=== PATIENT | male | born 1985 | race Two or more races ===

== ENCOUNTER 2016-12-12 09:41 | Emergency (ER) | payer MEDICAID ==
[~2016-12-12] VITALS: Ht 182.9 cm; Wt 106.6 kg
[~2016-12-12 09:41] MED LIST: CLON1TAB; LORA-205; TEMAZEPAM
[2016-12-12] MEDS ORDERED: SILVER SULFADIAZINE 1 % TOPICAL CREAM 50GM TOP ONE (11:00)
[2016-12-12 11:28] VITALS: BP 119/69
== END 2016-12-12 12:52 | disposition home or self-care (01) ==
LOC: ER 09:41 → EDBD 09:41 → ER 12:52
DX: T25.212A Burn of second degree of left ankle, initial encounter (principal); T24.112A Burn of first degree of left thigh, initial encounter; T22.112A Burn of first degree of left forearm, initial encounter; T31.0 Burns involving less than 10% of body surface; F17.210 Nicotine dependence, cigarettes, uncomplicated; X10.1XXA Contact with hot food, initial encounter; Y93.89 Activity, other specified; Y92.89 Other specified places as the place of occurrence of the external cause; Y99.8 Other external cause status
CPT/HCPCS: 16000

== ENCOUNTER 2018-10-06 08:19 | Inpatient (IN) | payer MEDICAID | END 2018-10-10 11:55 | disposition home or self-care (01) | LOC: ER 08:19 → TELE 12:24 → TELE-CENTR 17:30 | DX: A41.9 Sepsis, unspecified organism (principal); F15.10 Other stimulant abuse, uncomplicated; I88.0 Nonspecific mesenteric lymphadenitis; R07.89 Other chest pain; K80.20 Calculus of gallbladder without cholecystitis without obstruction ==

== ENCOUNTER 2021-01-09 11:45 | Emergency (ER) | payer MEDICAID, OTHER ==
[~2021-01-09] VITALS: Ht 180.3 cm; Wt 104.3 kg
[2021-01-09 12:42] VITALS: BP 140/84
== END 2021-01-09 14:18 | disposition home or self-care (01) ==
LOC: ER 11:45
DX: R21 Rash and other nonspecific skin eruption (principal); F17.210 Nicotine dependence, cigarettes, uncomplicated

== ENCOUNTER 2021-01-12 19:54 | Emergency (ER) | payer OTHER ==
[~2021-01-12] VITALS: Ht 180.3 cm; Wt 104.3 kg
[2021-01-12 19:55] VITALS: BP 118/72
[2021-01-12 21:05] LABS: Basophils # (auto) 0.1 10 ^3/uL (0-0.2); Basophils % (auto) 1.2 % (0.0-2.0); Eosinophils # (auto) 0.1 10 ^3/uL (0-0.8); Eosinophils % (auto) 1.8 % (0.0-7.0); Hematocrit 45.9 % (41.0-53.0); Hemoglobin 15.7 g/dL (13.5-17.5); Lymphocytes # (auto) 3.4 10 ^3/uL (0.4-5.4); Lymphocytes % (auto) 42.4 % (10.0-50.0); Mean Corpuscular Hemoglobin 30.9 pg (28.0-32.0); Mean Corpuscular Hgb Conc. 34.1 g/dL (32.0-36.0); Mean Corpuscular Volume 90.6 fL (80.0-100.0); Monocytes # (auto) 0.7 10 ^3/uL (0-1.3); Monocytes % (auto) 8.5 % (0.0-12.0); Neutrophils # (auto) 3.7 10 ^3/uL (1.6-8.6); Neutrophils % (auto) 46.1 % (37.0-80.0); Nucleated Red Blood Cells % 0.1 %; Red Blood Cells 5.06 10^6/uL (4.5-5.90); Red Cell Distribution Width 12.3 % (11.8-14.3)
[2021-01-12 21:28] LABS: Chloride 112 mmol/L (98-107); Potassium 3.5 mmol/L (3.5-5.1); Sodium 144 mmol/L (136-145)
[2021-01-12 21:32] LABS: Albumin 4.1 g/dL (3.4-5.0); Anion Gap 9 (5-15); BUN/Creatinine Ratio 13.2; Blood Urea Nitrogen 15 mg/dL (7-18); Calcium 8.5 mg/dL (8.5-10.1); Carbon Dioxide 23 mmol/L (21-32); GFR African American 93 mL/min; GFR Non-African American 77 mL/min; Glucose 103 mg/dL (74-106)
[2021-01-12 21:35] LABS: Alanine Aminotransferase 32 U/L (16-61); Alkaline Phosphatase 97 U/L (45-117); Aspartate Aminotransferase 20 U/L (15-37); Bilirubin, Total 0.3 mg/dL (0.2-1.0)
== END 2021-01-13 01:00 | disposition left against medical advice (07) ==
LOC: ER 19:54
DX: K92.1 Melena (principal); K62.89 Other specified diseases of anus and rectum; F11.10 Opioid abuse, uncomplicated; F12.10 Cannabis abuse, uncomplicated; F15.10 Other stimulant abuse, uncomplicated; F17.210 Nicotine dependence, cigarettes, uncomplicated; Z59.0 Homelessness
CPT/HCPCS: 36415; 74176; 80053; 85025

== ENCOUNTER 2021-10-24 18:46 | Emergency (ER) | payer OTHER ==
[~2021-10-24] VITALS: Ht 154.9 cm; Wt 104.3 kg
[2021-10-24 18:47] VITALS: BP 148/93
[2021-10-26] MEDS ORDERED: CEPH-509 PO (15:58)
[2021-10-26] MEDS ORDERED: IBUP800T27 PO (15:58)
[2021-10-26] MEDS ORDERED: SULF400T11 PO (15:58)
== END 2021-10-25 01:05 | disposition left against medical advice (07) ==
LOC: ER 18:46
DX: L02.414 Cutaneous abscess of left upper limb (principal); Z53.21 Procedure and treatment not carried out due to patient leaving prior to being seen by health care provider

== ENCOUNTER 2021-10-26 14:31 | Emergency (ER) | payer OTHER ==
[~2021-10-26] VITALS: Ht 180.3 cm; Wt 104.3 kg
[2021-10-26 14:38] VITALS: BP 124/96
[2021-10-26] MEDS ORDERED: IBUP800T27 PO (15:58)
[2021-10-26] MEDS ORDERED: SULF400T11 PO (15:58)
[2021-10-26] MEDS ORDERED: CEPH-509 PO (15:58)
== END 2021-10-26 16:04 | disposition home or self-care (01) ==
LOC: ER 14:31
DX: S00.86XA Insect bite (nonvenomous) of other part of head, initial encounter (principal); S80.861A Insect bite (nonvenomous), right lower leg, initial encounter; S50.861A Insect bite (nonvenomous) of right forearm, initial encounter; F17.210 Nicotine dependence, cigarettes, uncomplicated; Z59.00 Homelessness unspecified; Z79.1 Long term (current) use of non-steroidal anti-inflammatories (NSAID); Z79.899 Other long term (current) drug therapy; W57.XXXA Bitten or stung by nonvenomous insect and other nonvenomous arthropods, initial encounter; Y93.89 Activity, other specified; Y92.89 Other specified places as the place of occurrence of the external cause; Y99.0 Civilian activity done for income or pay

== ENCOUNTER 2023-12-21 16:19 | Inpatient (IN) | payer OTHER ==
[~2023-12-21] VITALS: Ht 182.9 cm; Wt 155.1 kg
[~2023-12-21 16:19] MED LIST changes: +CEPH-509 PO; -CLON1TAB; +IBUP-1456 PO; -LORA-205; +SULF400T11 PO; -TEMAZEPAM
[2023-12-21 17:41] LABS: Basophils # (auto) 0.1 10 ^3/uL (0-0.2); Basophils % (auto) 0.7 % (0.0-2.0); Eosinophils # (auto) 0.1 10 ^3/uL (0-0.8); Eosinophils % (auto) 0.7 % (0.0-7.0); Hemoglobin 15.8 g/dL (13.5-17.5); Lymphocytes # (auto) 2.1 10 ^3/uL (0.4-5.4); Lymphocytes % (auto) 13.9 % (10.0-50.0); Mean Corpuscular Hemoglobin 30.5 pg (28.0-32.0); Mean Corpuscular Hgb Conc. 34.2 g/dL (32.0-36.0); Mean Corpuscular Volume 89.2 fL (80.0-100.0); Monocytes % (auto) 6.7 % (0.0-12.0); Neutrophils # (auto) 11.8 10 ^3/uL (1.6-8.6); Red Blood Cells 5.16 10^6/uL (4.5-5.90); Red Cell Distribution Width 13.2 % (11.8-14.3); White Blood Cell 15.2 10^3/uL (4.4-10.8)
[2023-12-21 18:01] LABS: INR 0.97 (0.9-1.15); Partial Thromboplastin Time 24.3 SEC (24.5-34.5); Prothrombin Time 10.3 sec (9.3-11.8)
[2023-12-21 18:21] LABS: Alanine Aminotransferase 61 U/L (7-40); Alkaline Phosphatase 101 U/L (46-116); Calcium 9.9 mg/dL (8.7-10.4); Chloride 107 mmol/L (98-107)
[2023-12-21 18:22] LABS: Albumin 4.3 g/dL (3.2-4.8); Anion Gap 11 (5-15); Aspartate Aminotransferase 54 U/L (13-40); BUN/Creatinine Ratio 15.2 (10.0-20.0); Bilirubin, Total 0.4 mg/dL (0.2-1.0); Blood Urea Nitrogen 14 mg/dL (9-23); Carbon Dioxide 20 mmol/L (20-30); Glucose 120 mg/dL (74-106); Lipase 43 U/L (12-53); Potassium 3.9 mmol/L (3.5-5.1); Sodium 138 mmol/L (136-145)
[2023-12-21 19:06] LABS: Urine Bacteria None Seen /hpf (None Seen)
[2023-12-21 19:31] LABS: Urine Blood Negative /uL (Negative); Urine Clarity Clear (Clear); Urine Color Yellow (Yellow); Urine Mucus FEW (None Seen); Urine Protein, UAD 1+ (Negative); Urine Specific Gravity 1.046 (1.001-1.035); Urine Urobilinogen 2 mg/dL (Negative); Urine WBC 2 /hpf (0 - 3)
[2023-12-21 19:42] LABS: Amphetamine Screen, Urine Neg (NEGATIVE); Barbiturate Scree,Urine Neg (NEGATIVE); Benzodiazephine Screen, Urine Neg (NEGATIVE); Cannabinoid Screen, Urine Neg (NEGATIVE); Cocaine Screen, Urine Neg (NEGATIVE); Opiate Scree,Urine Neg (NEGATIVE); Phencyclidine Screen, Urine Neg (NEGATIVE)
[2023-12-21 22:08] VITALS: PULSE 85; RESP 16; O2SAT 97
[2023-12-22 00:20] VITALS: PULSE 89; RESP 18; O2SAT 97
[2023-12-22] MEDS: levoFLOXacin 500MG 100 ML IV ONE (00:26)
[2023-12-22] MEDS: metroNIDAZOLE 500MG/100ML 100 ML IV ONE (00:26)
[2023-12-22] MEDS ORDERED: NITROGLYCERIN 0.4 MG SL TAB SL PRN ×2 (14:30→14:45)
[2023-12-22] MEDS ORDERED: MORPHINE SULFATE INJ 2 MG/ml SYRG IV PRN ×2 (14:30→14:45)
[2023-12-22] MEDS ORDERED: PIPERACILLIN-TAZOB 3.375GM 100 ML IV SCH (14:30)
[2023-12-22] MEDS ORDERED: SODIUM CHLORIDE 0.9% 1,000 ML IV ONE (14:30)
[2023-12-22 15:07] LABS: Basophils # (auto) 0.1 10 ^3/uL (0-0.2); Basophils % (auto) 1.3 % (0.0-2.0); Eosinophils # (auto) 0.1 10 ^3/uL (0-0.8); Eosinophils % (auto) 1.8 % (0.0-7.0); Hematocrit 45.1 % (41.0-53.0); Hemoglobin 15.4 g/dL (13.5-17.5); Lymphocytes # (auto) 2.3 10 ^3/uL (0.4-5.4); Lymphocytes % (auto) 30.6 % (10.0-50.0); Mean Corpuscular Hemoglobin 30.5 pg (28.0-32.0); Mean Corpuscular Hgb Conc. 34.1 g/dL (32.0-36.0); Mean Corpuscular Volume 89.5 fL (80.0-100.0); Monocytes # (auto) 0.6 10 ^3/uL (0-1.3); Monocytes % (auto) 7.6 % (0.0-12.0); Neutrophils # (auto) 4.5 10 ^3/uL (1.6-8.6); Neutrophils % (auto) 58.7 % (37.0-80.0); Nucleated Red Blood Cells % 0.2 %; Red Blood Cells 5.04 10^6/uL (4.5-5.90); Red Cell Distribution Width 12.9 % (11.8-14.3); White Blood Cell 7.6 10^3/uL (4.4-10.8)
[2023-12-22 15:19] LABS: Chloride 108 mmol/L (98-107); Potassium 3.6 mmol/L (3.5-5.1); Sodium 138 mmol/L (136-145)
[2023-12-22 15:20] LABS: Anion Gap 8 (5-15); Carbon Dioxide 22 mmol/L (20-30)
[2023-12-22 15:21] LABS: Calcium 9.6 mg/dL (8.5-10.1)
[2023-12-22 15:25] LABS: BUN/Creatinine Ratio 12.2 (10.0-20.0); Blood Urea Nitrogen 11 mg/dL (9-23); Glucose 104 mg/dL (74-106)
[2023-12-22] MEDS: SODIUM CHLORIDE 0.9% 1,000 ML IV ONE (15:57)
[2023-12-22] MEDS: MORPHINE SULFATE INJ 2 MG/ml SYRG IV ONE (18:00)
[2023-12-22] MEDS: PIPERACILLIN-TAZOB 3.375GM 100 ML IV SCH (18:00)
[2023-12-22] MEDS ORDERED: ONDANSETRON HCL 4 MG/2 ML VIAL IV ONE (18:00)
[2023-12-22] MEDS ORDERED: MORPHINE SULFATE INJ 2 MG/ml SYRG IV ONE (18:00)
[2023-12-22] MEDS: ONDANSETRON HCL 4 MG/2 ML VIAL IV ONE (18:00)
[2023-12-22 21:18] VITALS: PULSE 67
[2023-12-22 22:16] VITALS: BP 140/89; PULSE 87; RESP 17; TEMP 98.6; O2SAT 93
[2023-12-22] MEDS ORDERED: HYDR50CA2 PO (22:16)
[2023-12-22] MEDS ORDERED: LURA40TA3 PO (22:16)
[2023-12-23] MEDS: PIPERACILLIN-TAZOB 3.375GM 100 ML IV SCH (03:23)
[2023-12-23 05:00] VITALS: BP 96/69; PULSE 77; RESP 18; TEMP 98; O2SAT 99
[2023-12-23 07:29] LABS: Basophils # (auto) 0.1 10 ^3/uL (0-0.2); Basophils % (auto) 1.4 % (0.0-2.0); Eosinophils # (auto) 0.1 10 ^3/uL (0-0.8); Eosinophils % (auto) 1.9 % (0.0-7.0); Hematocrit 44.3 % (41.0-53.0); Lymphocytes # (auto) 1.8 10 ^3/uL (0.4-5.4); Lymphocytes % (auto) 31.6 % (10.0-50.0); Mean Corpuscular Hemoglobin 30.7 pg (28.0-32.0); Mean Corpuscular Hgb Conc. 33.7 g/dL (32.0-36.0); Mean Corpuscular Volume 91.1 fL (80.0-100.0); Monocytes # (auto) 0.5 10 ^3/uL (0-1.3); Monocytes % (auto) 9.2 % (0.0-12.0); Neutrophils # (auto) 3.1 10 ^3/uL (1.6-8.6); Neutrophils % (auto) 55.9 % (37.0-80.0); Nucleated Red Blood Cells % 0.2 %; Red Blood Cells 4.87 10^6/uL (4.5-5.90); Red Cell Distribution Width 13.2 % (11.8-14.3); White Blood Cell 5.6 10^3/uL (4.4-10.8)
[2023-12-23 07:36] LABS: Alanine Aminotransferase 63 U/L (7-40); Alkaline Phosphatase 85 U/L (46-116); Anion Gap 4 (5-15); Aspartate Aminotransferase 29 U/L (13-40); BUN/Creatinine Ratio 9.8 (10.0-20.0); Bilirubin, Total 0.5 mg/dL (0.2-1.0); Blood Urea Nitrogen 9 mg/dL (9-23); Calcium 9.1 mg/dL (8.5-10.1); Carbon Dioxide 23 mmol/L (20-30); Chloride 110 mmol/L (98-107); Glucose 111 mg/dL (74-106); Sodium 137 mmol/L (136-145); Total Protein 6.3 g/dL (5.7-8.2)
[2023-12-23 09:00] VITALS: BP 119/77; PULSE 71; RESP 16; TEMP 97.9; O2SAT 98
[2023-12-23 13:00] VITALS: BP 138/74; PULSE 93; RESP 16; TEMP 98.1; O2SAT 94
[2023-12-23 17:00] VITALS: BP 150/79; PULSE 75; RESP 17; TEMP 97.1; O2SAT 96
[2023-12-23 21:00] VITALS: BP 124/70; PULSE 86; RESP 18; TEMP 98.6; O2SAT 94
[2023-12-24] VITALS (7 sets, daily range): BP systolic 112–129; BP diastolic 56–80; PULSE 68–91; RESP 16–20; TEMP 97.4–98.1; O2SAT 93–100
[2023-12-24] MEDS: SUCCINYLCHOLINE CHLORIDE 20 MG/ML 10ML VIAL IV ONE (07:18)
[2023-12-24] MEDS: ROCURONIUM 10MG/ML 10ML VIAL IV ONE (07:18)
[2023-12-24 07:27] LABS: Basophils # (auto) 0.1 10 ^3/uL (0-0.2); Basophils % (auto) 2.2 % (0.0-2.0); Eosinophils # (auto) 0.1 10 ^3/uL (0-0.8); Eosinophils % (auto) 2.2 % (0.0-7.0); Hematocrit 44.4 % (41.0-53.0); Hemoglobin 14.9 g/dL (13.5-17.5); Lymphocytes % (auto) 33.8 % (10.0-50.0); Mean Corpuscular Hemoglobin 30.6 pg (28.0-32.0); Mean Corpuscular Hgb Conc. 33.6 g/dL (32.0-36.0); Mean Corpuscular Volume 91.1 fL (80.0-100.0); Monocytes # (auto) 0.5 10 ^3/uL (0-1.3); Monocytes % (auto) 9.2 % (0.0-12.0); Neutrophils # (auto) 3.1 10 ^3/uL (1.6-8.6); Neutrophils % (auto) 52.6 % (37.0-80.0); Nucleated Red Blood Cells % 0.1 %; Red Blood Cells 4.88 10^6/uL (4.5-5.90); Red Cell Distribution Width 13.2 % (11.8-14.3); White Blood Cell 5.9 10^3/uL (4.4-10.8)
[2023-12-24 07:42] LABS: Alanine Aminotransferase 57 U/L (7-40); Albumin 4.2 g/dL (3.2-4.8); Alkaline Phosphatase 82 U/L (46-116); Anion Gap 5 (5-15); Aspartate Aminotransferase 24 U/L (13-40); BUN/Creatinine Ratio 8.6 (10.0-20.0); Bilirubin, Total 0.4 mg/dL (0.2-1.0); Blood Urea Nitrogen 8 mg/dL (9-23); Calcium 9.4 mg/dL (8.5-10.1); Carbon Dioxide 25 mmol/L (20-30); Chloride 107 mmol/L (98-107); Glucose 111 mg/dL (74-106); Potassium 4.3 mmol/L (3.5-5.1); Sodium 137 mmol/L (136-145); Total Protein 6.6 g/dL (5.7-8.2)
[2023-12-24] MEDS ORDERED: MORPHINE SULFATE INJ 2 MG/ml SYRG IV PRN (07:45)
[2023-12-24] MEDS: METOCLOPRAMIDE HCL 5MG/ml INJ 2ml VIAL IV ONE (07:45)
[2023-12-24] MEDS ORDERED: fentaNYL CITRATE 100 MCG/2 ML VL IV PRN (07:45)
[2023-12-24] MEDS ORDERED: HYDROmorphone HCL 2 MG/ML VL/or syr IV PRN (07:45)
[2023-12-24] MEDS ORDERED: fentaNYL CITRATE 100 MCG/2 ML VL ONE (07:54)
[2023-12-24] MEDS ORDERED: KETAMINE 50mg/ML 1ml syringe ONE (07:54)
[2023-12-24] MEDS ORDERED: NEOSTIGMINE 1 MG/ML INJ (10mg/10ML VIAL) ONE (07:55)
[2023-12-24] MEDS ORDERED: ONDANSETRON HCL 4 MG/2 ML VIAL ONE (07:55)
[2023-12-24] MEDS ORDERED: LIDOCAINE 2% TOPICAL JELLY 5 ML URJT TOP ONE (07:55)
[2023-12-24] MEDS ORDERED: LIDOCAINE 1% INJ PF 5ML AMP ONE (07:55)
[2023-12-24] MEDS ORDERED: MEPERIDINE HCL (50 MG/ML) 1 ML VIAL ONE (07:55)
[2023-12-24] MEDS ORDERED: SODIUM CHLORIDE LOCK 10 ML ONE (07:55)
[2023-12-24] MEDS ORDERED: DexAMETHasone SOD PHOS 10MG/1ML VIAL INJ ONE (07:55)
[2023-12-24] MEDS ORDERED: MIDAZOLAM HCL 2MG/2ML 2ml VIAL (1mg/ml) ONE (07:55)
[2023-12-24] MEDS ORDERED: GLYCOPYRROLATE 0.2 MG/ML 1ML VIAL ONE (07:55)
[2023-12-24] MEDS: BUPIVACAINE 0.5% P/F INJ 10 ML VIAL ONE (08:33)
[2023-12-24] MEDS: LIDOCAINE W/ EPINEPHRINE 1% 20ML VIAL ONE (08:33)
[2023-12-24] MEDS ORDERED: SUGAMMADEX 200mg/2ml Vial (100MG/ML) IV ONE (09:31)
[2023-12-24] MEDS: POVIDONE IODINE 10 % TOPICAL OINT 30GM TOP ONE (09:43)
[2023-12-24] MEDS ORDERED: ONDANSETRON HCL 4 MG/2 ML VIAL IV PRN (10:00)
[2023-12-24] MEDS: HYDROmorphone HCL 2 MG/ML VL/or syr IV PRN ×2 (10:27→14:02)
[2023-12-24] MEDS: D5W/SOD CHL 0.45%/KCL 20MEQ 1,000 ML IV SCH (12:01)
[2023-12-24] MEDS: PANTOPRAZOLE 40 MG/10 ML VIAL INJ IV SCH (12:01)
[2023-12-24] MEDS: PIPERACILLIN-TAZOB 3.375GM 100 ML IV SCH (18:00)
[2023-12-25] VITALS (9 sets, daily range): BP systolic 11–114; BP diastolic 56–76; PULSE 64–89; RESP 17–20; TEMP 97.3–98; O2SAT 90–99
[2023-12-25 07:06] LABS: Basophils # (auto) 0 10 ^3/uL (0-0.2); Basophils % (auto) 0.4 % (0.0-2.0); Eosinophils # (auto) 0 10 ^3/uL (0-0.8); Eosinophils % (auto) 0.1 % (0.0-7.0); Hematocrit 44.6 % (41.0-53.0); Lymphocytes # (auto) 2.1 10 ^3/uL (0.4-5.4); Lymphocytes % (auto) 22.4 % (10.0-50.0); Mean Corpuscular Hemoglobin 30.8 pg (28.0-32.0); Mean Corpuscular Hgb Conc. 33.7 g/dL (32.0-36.0); Mean Corpuscular Volume 91.5 fL (80.0-100.0); Monocytes # (auto) 0.8 10 ^3/uL (0-1.3); Monocytes % (auto) 8.7 % (0.0-12.0); Neutrophils # (auto) 6.3 10 ^3/uL (1.6-8.6); Neutrophils % (auto) 68.4 % (37.0-80.0); Nucleated Red Blood Cells % 0.1 %; Red Blood Cells 4.87 10^6/uL (4.5-5.90); Red Cell Distribution Width 13.3 % (11.8-14.3); White Blood Cell 9.2 10^3/uL (4.4-10.8)
[2023-12-25] MEDS ORDERED: HYDROmorphone HCL 2 MG/ML VL/or syr IV PRN (17:15)
[2023-12-25] MEDS: HYDROcodone-ACET 10/325MG TAB PO PRN (17:32)
[2023-12-25] MEDS: HYDROcodone-ACET 5/325MG TAB PO PRN (22:39)
[2023-12-26 01:00] VITALS: BP 106/65; PULSE 71; RESP 18; TEMP 98.7; O2SAT 94
[2023-12-26 04:51] VITALS: BP 163/86; PULSE 66; RESP 18; TEMP 98.3; O2SAT 98
[2023-12-26 05:20] VITALS: BP 108/62
[2023-12-26 08:00] VITALS: PULSE 63; RESP 18; O2SAT 97
[2023-12-26 09:00] VITALS: BP 100/62; PULSE 63; RESP 18; TEMP 97.4; O2SAT 97
[2023-12-26] MEDS ORDERED: HYDR-4902 PO (10:54)
[2023-12-26] MEDS ORDERED: NALO4SPR2 (10:57)
[2023-12-26 12:24] VITALS: BP 118/63; PULSE 65; RESP 19; TEMP 97.8; O2SAT 98
== END 2023-12-26 14:45 | disposition home or self-care (01) | DRG 263 ==
LOC: EDSEX 16:19 → ER 16:19 → EDBD 16:19 → OVERFLOW 12-22 14:32 → ER 12-22 14:32 → EAST 12-22 21:17
PROVIDERS: ADMIT Internal Medicine; ATTEND Student in an Organized Health Care Education/Training Program
PROC: 0FT44ZZ Resection of Gallbladder, Percutaneous Endoscopic Approach (ICD-10-PCS; principal; 2023-12-24 08:33)
DX: K80.00 Calculus of gallbladder with acute cholecystitis without obstruction (principal); K76.0 Fatty (change of) liver, not elsewhere classified; R16.0 Hepatomegaly, not elsewhere classified; E66.01 Morbid (severe) obesity due to excess calories; F41.9 Anxiety disorder, unspecified; F32.A Depression, unspecified; Z68.42 Body mass index [BMI] 45.0-49.9, adult
CPT/HCPCS: 36415; 71045; 74176; 74181; 76705; 80048; 80053; 80307; 81001; 82247; 83690; 85025; 85610; 85730; 86850; 86900; 86901; 87040; 96361; 96365; 96367; 96368; C9113; G0378; J0330; J1100; J1956; J2250; J2405; J2543; J3490

== ENCOUNTER 2024-01-02 14:00 | Emergency (ER) | payer OTHER ==
[~2024-01-02 14:00] MED LIST changes: -CEPH-509 PO; +HYDR-4902 PO; -IBUP-1456 PO; +NALO4SPR2; -SULF400T11 PO
== END 2024-01-02 14:10 | disposition left against medical advice (07) ==
LOC: ER 14:00
DX: Z48.00 Encounter for change or removal of nonsurgical wound dressing (principal); Z53.21 Procedure and treatment not carried out due to patient leaving prior to being seen by health care provider

== ENCOUNTER 2024-01-03 20:15 | Emergency (ER) | payer OTHER ==
[~2024-01-03] VITALS: Ht 180.3 cm; Wt 148.0 kg
[2024-01-03] MEDS: ACETAMINOPHEN 325 MG TAB PO ONE (20:41)
[2024-01-03 21:42] LABS: Basophils # (auto) 0.1 10 ^3/uL (0-0.2); Basophils % (auto) 0.6 % (0.0-2.0); Eosinophils # (auto) 0.1 10 ^3/uL (0-0.8); Eosinophils % (auto) 0.6 % (0.0-7.0); Hematocrit 47.2 % (41.0-53.0); Hemoglobin 16.4 g/dL (13.5-17.5); Lymphocytes # (auto) 2.2 10 ^3/uL (0.4-5.4); Lymphocytes % (auto) 16.7 % (10.0-50.0); Mean Corpuscular Hemoglobin 30.7 pg (28.0-32.0); Mean Corpuscular Hgb Conc. 34.7 g/dL (32.0-36.0); Mean Corpuscular Volume 88.5 fL (80.0-100.0); Monocytes # (auto) 1.4 10 ^3/uL (0-1.3); Neutrophils # (auto) 9.3 10 ^3/uL (1.6-8.6); Neutrophils % (auto) 71.1 % (37.0-80.0); Red Blood Cells 5.34 10^6/uL (4.5-5.90)
[2024-01-03 21:56] LABS: Alanine Aminotransferase 56 U/L (7-40); Albumin 4.7 g/dL (3.2-4.8); Alkaline Phosphatase 124 U/L (46-116); Anion Gap 7 (5-15); Aspartate Aminotransferase 35 U/L (13-40); BUN/Creatinine Ratio 6.3 (10.0-20.0); Bilirubin, Total 0.5 mg/dL (0.2-1.0); Blood Urea Nitrogen 7 mg/dL (9-23); Calcium 10.3 mg/dL (8.7-10.4); Carbon Dioxide 22 mmol/L (20-30); Chloride 107 mmol/L (98-107); Glucose 115 mg/dL (74-106); Sodium 136 mmol/L (136-145); Total Protein 7.9 g/dL (5.7-8.2)
[2024-01-03 23:01] LABS: Urine Bacteria None Seen /hpf (None Seen); Urine Blood Negative /uL (Negative); Urine Clarity Clear (Clear); Urine Color Yellow (Yellow); Urine Mucus MODERATE (None Seen); Urine Protein, UAD 1+ (Negative); Urine Urobilinogen 3 mg/dL (Negative); Urine WBC 4 /hpf (0 - 3)
[2024-01-03 23:46] VITALS: PULSE 123; RESP 36; O2SAT 98
[2024-01-03] MEDS: ONDANSETRON HCL 4 MG/2 ML VIAL IV ONE (23:52)
[2024-01-03] MEDS: PIPERACILLIN-TAZO 4.5GM 100 ML IV ONE (23:52)
[2024-01-03] MEDS: MORPHINE SULFATE 4 MG/ML SYR/VIAL IV ONE (23:53)
[2024-01-03] MEDS: SODIUM CHLORIDE 0.9% 1,000 ML IV ONE (23:53)
[2024-01-04] MEDS: MORPHINE SULFATE 4 MG/ML SYR/VIAL IV ONE (06:41)
[2024-01-04 07:27] VITALS: PULSE 99; RESP 20; O2SAT 95
[2024-01-04 08:00] VITALS: TEMP 99.3
[2024-01-04] MEDS: PIPERACILLIN-TAZOB 3.375GM 100 ML IV ONE ×2 (10:12→14:51)
[2024-01-04] MEDS ORDERED: AUG875T PO (10:16)
[2024-01-04] MEDS: SODIUM CHLORIDE 0.9% 1,000 ML IV ONE (11:10)
[2024-01-04] MEDS: HYDROcodone-ACET 10/325MG TAB PO PRN (12:26)
[2024-01-04 14:00] VITALS: BP 101/68; PULSE 95; RESP 22; O2SAT 95
== END 2024-01-04 14:58 | disposition home or self-care (01) ==
LOC: ER 20:15
DX: T81.49XA Infection following a procedure, other surgical site, initial encounter (principal); R10.9 Unspecified abdominal pain; Z90.49 Acquired absence of other specified parts of digestive tract
CPT/HCPCS: 36415; 71045; 74176; 80053; 81001; 83605; 85025; 87040; 87077; 87186; 87205; 96365; 96366; 96375; 96376; 99285; J2270; J2405; J2543; J7030; 93005